=== PATIENT | male | born 1955 | race Caucasian/White ===

== ENCOUNTER 2017-09-26 10:24 | Inpatient (IN) | payer OTHER ==
[~2017-09-26] VITALS: Ht 177.8 cm; Wt 92.5 kg
[2017-09-26] MEDS ORDERED: LIDOCAINE 4% TOPICAL 50 ML BOTTLE TP ONE (10:30)
[2017-09-26] MEDS ORDERED: TDAP DIPH,PERTUSS,TET VAC/PF 0.5 ML DISP.SYRIN IM ONE ×2 (10:30→10:59)
[2017-09-26] MEDS ORDERED: ONDANSETRON IV *ER 4 MG/2 ML VIAL IV ONE ×2 (10:30→18:30)
[2017-09-26] MEDS ORDERED: HYDROMORPHONE 1 MG/1 ML DISP.SYRIN IV ONE ×3 (10:30→18:30)
[2017-09-26] MEDS ORDERED: OMEPRAZOLE CAP 20MG PO (10:42)
[2017-09-26] MEDS ORDERED: ONDANSETRON 4 MG/2 ML VIAL ONE ×2 (10:59→18:43)
[2017-09-26] MEDS ORDERED: LIDOCAINE 4% TOPICAL 50 ML BOTTLE ONE (10:59)
[2017-09-26] MEDS ORDERED: HYDROMORPHONE 4 MG/1 ML DISP.SYRIN ONE ×2 (11:00→18:43)
--- NOTE | 2017-09-26 13:20 | NUR ---
To this point pt has been medicated with a total of Dilaudid 2mg IV. Dilaudid 4mg was removed from Pyxis initially and pt was medicated with Dilaudid 1mg IV x 2 doses and the remaining 2mg was wasted per protocol at this time. Witnessed by Senthil Chiang RN.
--- NOTE | 2017-09-26 14:00 | NUR ---
Per pt to be admitted to [facility]. Pt resting in [facility] with NAD noted at this time.
--- NOTE | 2017-09-26 14:30 | NUR ---
SBAR report given to Bolivar BUSTILLO via telephone.
--- NOTE | 2017-09-26 14:50 | NUR ---
Per Dr. Browning, cancel tele admission and pt to be trans for higher level of care.
--- NOTE | 2017-09-26 14:53 | NUR ---
Beatrice CEBALLOS called spoke with Neelam morales call back.
[2017-09-26] MEDS ORDERED: HYDROCODONE/APAP 7.5-325MG TABLET PO PRN (15:00)
[2017-09-26] MEDS ORDERED: ONDANSETRON 4 MG/2 ML VIAL IV PRN (15:00)
[2017-09-26] MEDS ORDERED: HYDROMORPHONE 1 MG/1 ML DISP.SYRIN IM PRN (15:00)
[2017-09-26] MEDS ORDERED: Z GUARD REMEDY PASTE 57 GM TUBE TOP PRN (15:00)
[2017-09-26] MEDS ORDERED: HYDROCODONE/APAP 5-325MG TABLET PO PRN (15:00)
[2017-09-26] MEDS ORDERED: MAGNESIUM HYDROXIDE 30 ML LIQUID UDC PO PRN (15:00)
[2017-09-26] MEDS ORDERED: ACETAMINOPHEN 325 MG TABLET PO PRN (15:00)
[2017-09-26] MEDS ORDERED: LIDOCAINE 5% PATCH TD SCH (15:00)
[2017-09-26] MEDS ORDERED: diphenhydrAMINE 50 MG/1 ML VIAL IV PRN (15:00)
[2017-09-26 15:38] LABS: BASOPHILS # (AUTO) 0.6 K/uL (0.0-8.0); BASOPHILS % (AUTO) 3.6 % (0.0-2.0); EOSINOPHILS % (AUTO) 0.1 % (0.0-7.0); HEMATOCRIT 45.5 % (40-50); HEMOGLOBIN 15.1 G/DL (14.0-18.0); LYMPHOCYTES # (AUTO) 0.5 K/UL (0.8-4.8); LYMPHOCYTES % (AUTO) 3.5 % (20.5-51.5); MEAN CORPUSCULAR HEMOGLOBIN 31.3 UUG (27.0-31.0); MEAN CORPUSCULAR HGB CONC 33 g/dL (32.0-37.0); MEAN CORPUSCULAR VOLUME 94.5 FL (82.0-92.0); MONOCYTES # (AUTO) 0.9 K/UL (0.1-1.30); MONOCYTES % (AUTO) 5.8 % (0.0-11.0); NEUTROPHILS # (AUTO) 13.5 K/UL (1.8-8.9); PLATELET COUNT (AUTO) 236 K/UL (150-450); RED BLOOD CELL COUNT(AUTO) 4.82 MIL/UL (4.7-6.1); WHITE BLOOD COUNT (AUTO) 15.5 K/UL (4.0-11.2)
[2017-09-26 15:47] LABS: CREATININE 1.2 mg/dL (0.6-1.3); POTASSIUM 4.5 mmol/L (3.5-5.1)
[2017-09-26] MEDS: ALBUTEROL SULFATE 2.5 MG/3 ML NEBU NEB SCH ×3 (15:49→22:54)
--- NOTE | 2017-09-26 15:49 | NUR ---
Patient is for transfer to another hospital. Lidocaine patch & albuterol med orders were from the [facility] doctor- not indicated for now per our ER doctor.
--- NOTE | 2017-09-26 16:10 | NUR ---
Called [facility], spoke with Margi and provided requested information, stated will speak with charge nurse and call back.
--- NOTE | 2017-09-26 16:22 | NUR ---
Patient is resting comfortably in bed with eyes closed. Family is at bedside, no acute change in condition seen. Pain is controlled at this time at around 3-6/10 pain scale per patient's report.
--- NOTE | 2017-09-26 16:50 | NUR ---
Received telephone call from Ngozi from [facility] who stated they have no beds available at this time, notified.
--- NOTE | 2017-09-26 18:53 | NUR ---
[facility] was called again per spouse request.
--- NOTE | 2017-09-26 19:04 | NUR ---
Hands off report given to KENY Cano
--- NOTE | 2017-09-26 20:53 | NUR ---
Called report to KENY Betancourt.
[2017-09-26 21:45] VITALS: BP 128/71
[2017-09-26 22:10] VITALS: BP 128/71
[2017-09-26] MEDS ORDERED: HYDROCODONE/APAP 7.5-325MG TABLET ONE (23:45)
[2017-09-27] VITALS: BP 118/65
[2017-09-27] MEDS: ALBUTEROL SULFATE 2.5 MG/3 ML NEBU NEB SCH ×7 (03:30→23:29)
[2017-09-27 04:17] VITALS: BP 119/64
[2017-09-27 04:23] VITALS: BP 119/64
[2017-09-27] MEDS ORDERED: HYDROCODONE/APAP 7.5-325MG TABLET ONE (06:06)
[2017-09-27 06:56] LABS: BASOPHILS # (AUTO) 0.1 K/uL (0.0-8.0); BASOPHILS % (AUTO) 0.9 % (0.0-2.0); EOSINOPHILS % (AUTO) 0.5 % (0.0-7.0); LYMPHOCYTES # (AUTO) 0.8 K/uL (20.0-40.0); MEAN CORPUSCULAR HEMOGLOBIN 33.3 uug (23.8-33.4); MEAN CORPUSCULAR HGB CONC 35 g/dL (32.5-36.3); MEAN CORPUSCULAR VOLUME 95.3 fL (73.0-96.2); MONOCYTES # (AUTO) 1.3 K/uL (2.0-10.0); MONOCYTES % (AUTO) 12.2 % (0.0-11.0); NEUTROPHILS # (AUTO) 8.1 K/uL (1.8-8.9); NEUTROPHILS % (AUTO) 78.4 % (38.5-71.5); PLATELET COUNT (AUTO) 185 K/uL (152-348); RED BLOOD CELL COUNT(AUTO) 4.24 MIL/uL (4.06-5.63)
[2017-09-27 06:58] LABS: HEMATOCRIT 40.5 % (36.7-47.1); HEMOGLOBIN 14.4 g/dL (12.5-16.3); WHITE BLOOD COUNT (AUTO) 10.3 K/uL (3.6-10.2)
[2017-09-27 07:03] LABS: CREATININE 1.2 mg/dL (0.6-1.3); MAGNESIUM 2.1 mg/dL (1.8-2.4); PHOSPHOROUS 3.7 mg/dL (2.5-4.9); POTASSIUM 3.8 mmol/L (3.5-5.1)
--- NOTE | 2017-09-27 08:00 | NUR ---
NO ACUTE DISTRESS O2 2L NC SATURATING 94%. CONTINUE WITH PAIN MANAGEMENT
[2017-09-27] MEDS ORDERED: MORPHINE SULFATE 4 MG/1 ML DISP.SYRIN IV PRN (09:45)
[2017-09-27 11:45] VITALS: BP 104/58
--- NOTE | 2017-09-27 12:00 | NUR ---
REMAINS SR ON MONITOR. DRESSING TO ALL AREAS OF [employer]AN AND INTACT. AFEBRILE
[2017-09-27] MEDS: LIDOCAINE 5% PATCH TD SCH (13:34)
[2017-09-27] MEDS ORDERED: IBUPROFEN 600 MG TABLET PO PRN (14:00)
[2017-09-27] MEDS ORDERED: KETOROLAC TROMETHAMINE 30 MG INJ IM PRN (14:00)
[2017-09-27 15:30] VITALS: BP 113/62
--- NOTE | 2017-09-27 15:55 | NUR ---
SEEN BY DR MONTGOMERY WITH ORDERS, CONTINUE WITH RICARDO MONITORING. O2 2L NC SATURATING 95%
[2017-09-27] MEDS: HYDROCODONE/APAP 7.5-325MG TABLET PO PRN (19:32)
[2017-09-27 20:48] VITALS: BP 141/70
[2017-09-28] VITALS: BP 118/61
[2017-09-28] MEDS: ALBUTEROL SULFATE 2.5 MG/3 ML NEBU NEB SCH ×5 (03:03→19:19)
[2017-09-28 04:20] VITALS: BP 128/66
--- NOTE | 2017-09-28 06:59 | NUR ---
pt refused the use of rt arm sling. no acute changes in status
[2017-09-28] MEDS ORDERED: PANTOPRAZOLE SODIUM 40 MG TABLET.DR PO SCH (07:00)
[2017-09-28 07:47] VITALS: BP 122/72
--- NOTE | 2017-09-28 08:00 | NUR ---
RESTING IN BED NO SIGNS OF DISTRESS BUT PAIN ON THE RIGHT SHOULDER. CONTINUE WITH PAIN MANAGEMENT
[2017-09-28] MEDS: LIDOCAINE 5% PATCH TD SCH (08:28)
[2017-09-28] MEDS: HYDROCODONE/APAP 7.5-325MG TABLET PO PRN ×2 (08:32→17:54)
[2017-09-28 11:19] LABS: BASOPHILS # (AUTO) 0.1 K/uL (0.0-8.0); BASOPHILS % (AUTO) 0.6 % (0.0-2.0); EOSINOPHILS # (AUTO) 0.1 K/uL (0.0-0.7); EOSINOPHILS % (AUTO) 0.9 % (0.0-7.0); HEMATOCRIT 41.5 % (36.7-47.1); HEMOGLOBIN 14.2 g/dL (12.5-16.3); LYMPHOCYTES # (AUTO) 0.7 K/uL (20.0-40.0); LYMPHOCYTES % (AUTO) 6.9 % (20.5-51.5); MEAN CORPUSCULAR HEMOGLOBIN 32.7 uug (23.8-33.4); MEAN CORPUSCULAR HGB CONC 34 g/dL (32.5-36.3); MEAN CORPUSCULAR VOLUME 95.6 fL (73.0-96.2); MONOCYTES % (AUTO) 10.1 % (0.0-11.0); NEUTROPHILS # (AUTO) 8.1 K/uL (1.8-8.9); NEUTROPHILS % (AUTO) 81.5 % (38.5-71.5); PLATELET COUNT (AUTO) 166 K/uL (152-348); RED BLOOD CELL COUNT(AUTO) 4.34 MIL/uL (4.06-5.63); WHITE BLOOD COUNT (AUTO) 9.9 K/uL (3.6-10.2)
[2017-09-28 11:29] VITALS: BP 117/65
--- NOTE | 2017-09-28 12:00 | NUR ---
NO SIGNS OF DISTRESS CONTINUE WITH O2 2L NC SATURATING 98%. SR ON MONITOR AFEBRILE
[2017-09-28] MEDS ORDERED: IBUP-1953 PO (13:48)
--- NOTE | 2017-09-28 14:33 | NUR ---
SEEN BY DR LUNA WITH PLAN FOR DISCHAGE AFTER ORTHO CONSULT
[2017-09-28 15:41] VITALS: BP 122/66
--- NOTE | 2017-09-28 18:40 | NUR ---
DISCHARGED HOME STABLE ACCOMPANIED BY WITH RX AND FOLLOW-UP INSTRUCTION WITH PCP AND ORTHO
== END 2017-09-28 18:00 | disposition home or self-care (01) | DRG 200 ==
LOC: ER 10:24 → TELE 20:58 → TELE-TD 21:42 → MED 09-28 14:00
PROVIDERS: ADMIT Internal Medicine; ATTEND Internal Medicine
DX: S27.0XXA Traumatic pneumothorax, initial encounter (principal); S22.41XA Multiple fractures of ribs, right side, initial encounter for closed fracture; D72.829 Elevated white blood cell count, unspecified; K21.9 Gastro-esophageal reflux disease without esophagitis; E78.5 Hyperlipidemia, unspecified; S42.031A Displaced fracture of lateral end of right clavicle, initial encounter for closed fracture; S42.101A Fracture of unspecified part of scapula, right shoulder, initial encounter for closed fracture; T79.7XXA Traumatic subcutaneous emphysema, initial encounter; V18.4XXA Pedal cycle driver injured in noncollision transport accident in traffic accident, initial encounter; Y93.55 Activity, bike riding; Y92.89 Other specified places as the place of occurrence of the external cause
CPT/HCPCS: 36415; 71010; 71020; 71250; 73030; 83735; 84100; 85025; 85610; 90715; 94640; A4663; J1170; J2270; J2405